=== PATIENT | female | born 1950 | race Two or more races ===

== ENCOUNTER 2016-12-25 07:50 | Emergency (ER) | payer OTHER, MEDICAID ==
[~2016-12-25] VITALS: Ht 154.9 cm; Wt 78.0 kg
[~2016-12-25 07:50] MED LIST: ALBU18 IN; ASPI81TA10 PO; CLOP75TA41 PO; GABA-494 PO; HYDR200T36 PO; MILN25TA PO; NAP500T PO; OMEP20TA44 PO; OXYB5TAB62 PO; PRAV20TA3 PO
[2016-12-25 07:59] VITALS: BP 156/76
== END 2016-12-25 08:43 | disposition home or self-care (01) ==
LOC: ER 07:50
DX: T78.40XA Allergy, unspecified, initial encounter (principal); T36.1X5A Adverse effect of cephalosporins and other beta-lactam antibiotics, initial encounter; T48.3X5A Adverse effect of antitussives, initial encounter; R21 Rash and other nonspecific skin eruption; K21.9 Gastro-esophageal reflux disease without esophagitis; Z88.8 Allergy status to other drugs, medicaments and biological substances; Z79.82 Long term (current) use of aspirin

== ENCOUNTER 2017-05-18 20:36 | Emergency (ER) | payer MEDICAID, OTHER ==
[~2017-05-18] VITALS: Ht 157.5 cm; Wt 77.1 kg
[~2017-05-18 20:36] MED LIST changes: -GABA-494 PO; +GABA100C9 PO
[2017-05-18] MEDS ORDERED: LIDOCAINE VISCOUS 2% 15ML UD PO ONE (23:45)
[2017-05-19] MEDS ORDERED: methylPREDNISolone SOD SUCC 125 MG/2 ML VL IM ONE (00:15)
[2017-05-19] MEDS ORDERED: KETOROLAC TROMETH 60MG/2ML VIAL IM ONE (00:15)
[2017-05-19 00:18] VITALS: BP 140/75
== END 2017-05-19 00:56 | disposition home or self-care (01) ==
LOC: ER 20:36
DX: H60.91 Unspecified otitis externa, right ear (principal); K21.9 Gastro-esophageal reflux disease without esophagitis; M19.90 Unspecified osteoarthritis, unspecified site; R42 Dizziness and giddiness
CPT/HCPCS: 70450; 93005; 96372; 99284; J1885; J2930

== ENCOUNTER 2019-12-02 20:41 | Emergency (ER) | payer OTHER, MEDICAID ==
[~2019-12-02] VITALS: Ht 162.6 cm; Wt 78.9 kg
[~2019-12-02 20:41] MED LIST changes: +OXYB5TAB24 PO; -OXYB5TAB62 PO
[2019-12-02 23:10] LABS: Basophils # (auto) 0 10 ^3/uL (0-0.2); Basophils % (auto) 0.6 % (0.0-2.0); Eosinophils # (auto) 0.1 10 ^3/uL (0-0.8); Eosinophils % (auto) 0.7 % (0.0-7.0); Hematocrit 43.6 % (36.0-46.0); Hemoglobin 14.9 g/dL (12.2-16.2); Lymphocytes % (auto) 28.1 % (10.0-50.0); Mean Corpuscular Hemoglobin 33.8 pg (28.0-32.0); Mean Corpuscular Hgb Conc. 34.1 g/dL (32.0-36.0); Mean Corpuscular Volume 99.2 fL (80.0-100.0); Monocytes # (auto) 0.4 10 ^3/uL (0-1.3); Monocytes % (auto) 6.1 % (0.0-12.0); Neutrophils # (auto) 4.5 10 ^3/uL (1.6-8.6); Neutrophils % (auto) 64.5 % (37.0-80.0); Nucleated Red Blood Cells % 0.1 %; Platelet Count (auto) 255 10^3/uL (140-450); Red Cell Distribution Width 13.6 % (11.8-14.3)
[2019-12-02 23:28] LABS: Alanine Aminotransferase 27 U/L (13-56); Albumin 3.8 g/dL (3.4-5.0); Anion Gap 6 (5-15); Aspartate Aminotransferase 17 U/L (15-37); BUN/Creatinine Ratio 13.1; Blood Urea Nitrogen 8 mg/dL (7-18); Calcium 8.7 mg/dL (8.5-10.1); Carbon Dioxide 25 mmol/L (21-32); Chloride 110 mmol/L (98-107); GFR African American 125 mL/min; GFR Non-African American 103 mL/min; Glucose 108 mg/dL (74-106); Potassium 4.4 mmol/L (3.5-5.1); Sodium 141 mmol/L (136-145)
[2019-12-02 23:34] LABS: Alkaline Phosphatase 118 U/L (45-117); Bilirubin, Total 0.6 mg/dL (0.2-1.0); Total Protein 7.9 g/dL (6.4-8.2)
[2019-12-02 23:38] LABS: Partial Thromboplastin Time 29.1 sec (23.0-31.2)
[2019-12-03 00:29] VITALS: BP 131/83
== END 2019-12-03 00:29 | disposition home or self-care (01) ==
LOC: ER 20:41
DX: R07.89 Other chest pain (principal); K21.9 Gastro-esophageal reflux disease without esophagitis; R42 Dizziness and giddiness; Z88.6 Allergy status to analgesic agent
CPT/HCPCS: 36415; 71045; 80053; 83880; 84484; 85025; 85610; 85730; 93005